=== PATIENT | male | born 1940 ===

== ENCOUNTER → 2017-08-07 | Outpatient (CLI) | payer OTHER ==
[~2017-08-07] MED LIST: ACEBUTCAFT PO; AMOX1XR PO; ASPI81EC PO; ATEN50; CIPR500 PO; CYAN1000I IM; DICY20 PO; DUTA.5 PO; FAMO20 PO; FURO20 PO; GABA100 PO; HYDCHL12.5; HYDCHL12.5 PO; LACT10SY PO; LEVLIO1 PO; LOSA50 PO; METCAR750 PO; METR250 PO; METR500 PO; OLME20 PO; OXYACE5T PO; PROP80ER PO; Propecia1 MG PO; RABE20; SUMA25 PO; TESTOSTERONE INJ; THYR60 PO; VIT D; ZOLM5 PO
[2017-08-07 16:04] LABS: Albumin, Blood 3.9 g/dL (3.4-5.0); Anion Gap 7 mmol/L (6-16); Blood Urea Nitrogen 23 mg/dL (8-24); CO2, Blood 29 mmol/L (21-32); Calcium, Blood 9.1 mg/dL (8.5-10.1); Chloride, Blood 105 mmol/L (98-108); Creatinine, Blood 1.64 mg/dL (0.60-1.20); Glomerular Filtration Rate 43 (60-); Glucose, Blood 169 mg/dL (70-99); Phosphorus, Blood 2.9 mg/dL (2.5-4.9); Potassium, Blood 3.6 mmol/L (3.5-5.5); Sodium, Blood 141 mmol/L (136-145)
== END | disposition home or self-care (01) ==
LOC: OLS 14:49
PROVIDERS: Internal Medicine
DX: N18.3 Chronic kidney disease, stage 3 (moderate) (principal); D63.1 Anemia in chronic kidney disease
CPT/HCPCS: 36415; 80069

== ENCOUNTER 2019-01-21 17:24 | Emergency (ER) | payer OTHER ==
[~2019-01-21] VITALS: Ht 175.3 cm; Wt 115.7 kg
== END 2019-01-21 18:20 | disposition home or self-care (01) ==
LOC: ER 17:24
DX: S00.81XA Abrasion of other part of head, initial encounter (principal); I10 Essential (primary) hypertension; E03.9 Hypothyroidism, unspecified; Z85.51 Personal history of malignant neoplasm of bladder; Z87.891 Personal history of nicotine dependence; Z88.5 Allergy status to narcotic agent; Z79.899 Other long term (current) drug therapy; Z79.82 Long term (current) use of aspirin; W22.8XXA Striking against or struck by other objects, initial encounter
CPT/HCPCS: 70450; 99283-25

== ENCOUNTER → 2019-04-16 | Outpatient (CLI) | payer OTHER ==
[2019-04-16 19:47] LABS: Free Thyroxine 0.77 ng/dL (0.70-1.60); Thyroid Stimulating Hormone 2.5 uIU/mL (0.360-4.800); Triiodothyronine, Free 2.18 pg/mL (2.18-3.98)
== END | disposition home or self-care (01) ==
LOC: LAB SHORT 15:20 → LAB 15:20
PROVIDERS: Hospitalist
DX: E03.9 Hypothyroidism, unspecified (principal)
CPT/HCPCS: 84439; 84443; 84481

== ENCOUNTER 2020-06-26 00:06 | Emergency (ER) | payer OTHER ==
[~2020-06-26] VITALS: Ht 175.3 cm; Wt 90.7 kg
[2020-06-26] MEDS ORDERED: CLOP75 PO (00:43)
[2020-06-26] MEDS ORDERED: LOSARTAN POTAS100 M1 PO (00:43)
[2020-06-26] MEDS ORDERED: FURO40 PO (00:50)
[2020-06-26] MEDS ORDERED: FINA5 PO (00:50)
[2020-06-26] MEDS ORDERED: DILTIAZEM 24HR240 M5 PO (00:51)
[2020-06-26] MEDS ORDERED: VITAMIN D325 MC3 PO (00:53)
[2020-06-26] MEDS ORDERED: MEMA10 PO (00:53)
[2020-06-26] MEDS ORDERED: DIVA250ER PO (00:54)
[2020-06-26] MEDS ORDERED: SERT100 PO (00:54)
[2020-06-26] MEDS ORDERED: QUET25 PO (00:54)
[2020-06-26] MEDS ORDERED: MECL25 PO (00:55)
[2020-06-26] MEDS ORDERED: IMITREX50 MG PO (00:55)
[2020-06-26 01:38] LABS: BASOPHILS ABSOLUTE AUTO 0.03 K/mm3 (0.00-0.23); BASOPHILS PERCENT AUTO 0 % (0-2); EOSINOPHILS ABSOLUTE AUTO 0.14 K/mm3 (0.00-0.68); EOSINOPHILS PERCENT AUTO 2 % (0-6); Hematocrit 44.3 % (37.0-53.0); Hemoglobin 14.9 g/dL (13.5-17.5); IMMATURE GRAN ABSOLUTE AUTO 0.03 K/mm3 (0.00-0.10); IMMATURE GRAN PERCENT AUTO 0 % (0-1); LYMPHOCYTES ABSOLUTE AUTO 2.17 K/mm3 (0.84-5.20); LYMPHOCYTES PERCENT AUTO 29 % (21-46); MONOCYTES ABSOLUTE AUTO 0.63 K/mm3 (0.16-1.47); MONOCYTES PERCENT AUTO 8 % (4-13); Mean Corpuscular HGB 32.7 pg (26.0-34.0); Mean Corpuscular HGB Conc 33.6 g/dL (31.5-36.5); Mean Corpuscular Volume 97 fL (80-100); Mean Platelet Volume 9.9 fL (9.1-12.4); NEUTROPHILS ABSOLUTE AUTO 4.62 K/mm3 (1.96-9.15); NEUTROPHILS PERCENT AUTO 61 % (41-73); Platelet Count 177 K/mm3 (150-400); RDW Coefficient Variation 13.1 % (11.7-14.2); RDW Standard Deviation 46.6 fL (35.1-46.3); Red Blood Cell Count 4.55 M/mm3 (4.30-5.90); White Blood Cell Count 7.62 K/mm3 (4.00-11.30)
[2020-06-26 01:46] LABS: Albumin, Blood 3.7 g/dL (3.4-5.0); Bilirubin, Total 0.4 mg/dL (0.1-1.0); Calcium, Blood 9.8 mg/dL (8.5-10.1); Creatinine, Blood 1.84 mg/dL (0.60-1.20); Globulin, Blood 3.6 g/dL (2.2-4.0); Potassium, Blood 3.9 mmol/L (3.5-5.5); Total Protein, Blood 7.3 g/dL (6.4-8.2); Troponin I 0.032 ng/mL (0.000-0.040)
[2020-06-26 03:24] LABS: Source, Urine Catheter
[2020-06-26 03:29] LABS: Appearance, Urine Clear (Clear); Bilirubin, Urine Neg (Neg); Blood, Urine 2+ (Neg); Color, Urine Yellow (P-Yellow); Glucose Qualitative, Urine Neg (Neg); Ketones, Urine 1+ (Neg); Leukocyte Esterase, Urine 1+ (Neg); Nitrite, Urine Neg (Neg); Protein, Urine 2+ (Neg); Urobilinogen, Urine NORM (Normal); pH, Urine 6.5 (5.0-8.0)
[2020-06-26 03:38] LABS: Squamous Epithelial Cells Rare /hpf (Few); White Blood Cells, Urine 0-2 /hpf (0-5)
[2020-06-26 03:39] LABS: Bacteria Rare /hpf; Hyaline Casts 0-2 /lpf (0-2); Mucus Light (0-Heavy)
== END 2020-06-26 06:22 | disposition home or self-care (01) ==
LOC: ER 00:06
PROVIDERS: Emergency Medicine
DX: S09.90XA Unspecified injury of head, initial encounter (principal); S60.222A Contusion of left hand, initial encounter; I10 Essential (primary) hypertension; G30.9 Alzheimer's disease, unspecified; F02.80 Dementia in other diseases classified elsewhere, unspecified severity, without behavioral disturbance, psychotic disturbance, mood disturbance, and anxiety; Z79.899 Other long term (current) drug therapy; Z88.5 Allergy status to narcotic agent; Z79.82 Long term (current) use of aspirin; Z86.73 Personal history of transient ischemic attack (TIA), and cerebral infarction without residual deficits; Z87.891 Personal history of nicotine dependence; W01.0XXA Fall on same level from slipping, tripping and stumbling without subsequent striking against object, initial encounter; Y92.002 Bathroom of unspecified non-institutional (private) residence as the place of occurrence of the external cause
CPT/HCPCS: 70450; 71045; 72125; 73562-LT; 73562-RT; 80053; 81001; 84484; 85025; 87086; 90471; 93005; 93010; 96360; 96361; 99285-25; J7120